=== PATIENT | female | born 1995 | race Caucasian/White ===

== ENCOUNTER 2016-09-04 10:20 | Emergency (ER) | payer OTHER ==
[2016-09-19] MEDS ORDERED: PROVENTIL HFA 61 INH INH (07:56)
[2016-09-19] MEDS ORDERED: PROZAC10 MG PO (07:56)
[2016-09-19] MEDS ORDERED: NORCO 7.5-3251 EACH PO (11:42)
== END 2016-09-04 12:42 | disposition home or self-care (01) ==
LOC: ER1 10:20
DX: L05.01 Pilonidal cyst with abscess (principal); F17.200 Nicotine dependence, unspecified, uncomplicated; F32.9 Major depressive disorder, single episode, unspecified; Z79.899 Other long term (current) drug therapy
CPT/HCPCS: 10061; 84703; 87070; 87205; 99283

== ENCOUNTER → 2016-09-19 | Day surgery (SDC) | payer OTHER ==
[~2016-09-19] VITALS: Ht 175.3 cm; Wt 120.2 kg
[~2016-09-19] MED LIST: NORCO 7.5-3251 EACH PO; PROVENTIL HFA 61 INH INH; PROZAC10 MG PO
== END | disposition home or self-care (01) ==
LOC: OR 07:09
PROVIDERS: Surgery
PROC: 0JB90ZZ Excision of Buttock Subcutaneous Tissue and Fascia, Open Approach (ICD-10-PCS; principal; 2016-09-19 09:30)
DX: L05.91 Pilonidal cyst without abscess (principal); L72.0 Epidermal cyst; J45.909 Unspecified asthma, uncomplicated; E66.9 Obesity, unspecified; F17.210 Nicotine dependence, cigarettes, uncomplicated; Z79.899 Other long term (current) drug therapy; Z87.19 Personal history of other diseases of the digestive system
CPT/HCPCS: 84703; J0690; J1200; J1885; J2250; J2405; J2710; J2795; J3010; J7030; J7120; Q9968

== ENCOUNTER 2020-10-14 11:17 | Emergency (ER) | payer OTHER ==
[~2020-10-14 11:17] MED LIST changes: +CEFUROXIME500 MG PO; +COLACE 100MG C100 MG PO; +FLOMAX0.4 MG PO; +IBUPROFEN600 MG PO; +TORADOL 10 MG T10 MG PO; +ZOFRAN4 MG PO
[2020-10-14 12:01] LABS: RED BLOOD COUNT 4.62 M/UL (4.00-5.10); WHITE BLOOD COUNT 7.8 K/UL (4.5-11.0)
[2020-10-14 12:36] LABS: BUN/CREATININE RATIO 21 (0-10)
[2020-10-14] MEDS ORDERED: FLAGYL500 MG PO (15:26)
== END 2020-10-14 23:05 | disposition home or self-care (01) ==
LOC: ER1 11:17
PROVIDERS: Emergency Medicine
DX: N20.0 Calculus of kidney (principal); F17.200 Nicotine dependence, unspecified, uncomplicated
CPT/HCPCS: 80053; 81001; 83690; 84703; 85025; 96374; 96375; 99284; J2270; J2405; J7030; Q9967

== ENCOUNTER → 2021-05-03 | Outpatient (CLI) | payer OTHER, BC ==
[~2021-05-03] MED LIST changes: +FLAGYL500 MG PO
[2021-05-04 17:11] LABS: ENDOMYSIAL ANTIBODY IGA Negative (Negative); IMMUNOGLOBULIN A, QN, SERUM 459 mg/dL (87-352); T-TRANSGLUTAMINASE (TTG) IGA <2 U/mL (0-3)
== END ==
LOC: LAB 09:26
PROVIDERS: Physician Assistant Surgical
DX: R19.7 Diarrhea, unspecified (principal); R10.13 Epigastric pain
CPT/HCPCS: 36415; 82784